=== PATIENT | female | born 1970 | race Hispanic/Latino ===

== ENCOUNTER 2016-08-24 20:33 | Emergency (ER) | payer BC ==
[2016-08-24 20:42] VITALS: BP 125/84; PULSE 82; RESP 16; TEMP 97.6; O2SAT 100
[2016-08-24] MEDS ORDERED: RABIES VACCINE 2.5 U PDR IM ONE (20:51)
[2016-08-24] MEDS ORDERED: Rabies Immune Globulin 150 INTLU/ML VIAL IM ONE (20:51)
[2016-08-24] MEDS ORDERED: TDAP Vaccine 0.5 mL Syr IM ONE (20:53)
--- NOTE | 2016-08-24 21:02 | ED PDOC ---
HPI: General Adult Time Seen by Provider: 08/24/16 20:45 Chief Complaint (Nursing): Bite Chief Complaint (Provider): Dog Bite History Per: Patient History/Exam Limitations: no limitations Onset/Duration Of Symptoms: Hrs Have you had recent travel within the past 21 days to any of the following countries: [place], [place], [place] or [place]?: No Current Symptoms Are (Timing): Still Present Additional Complaint(s): Frida Hurtado, a 46 year old female, presents to the ED with a dog bite. The patient states that earlier today she was bitten by a dog on her left forearm. She states that she was attempting to stop 2 dogs from fighting. The patient is uncertain of the dogs immunization status and she does not have the owners contact information. Past Medical History Reviewed: Historical Data, Nursing Documentation, Vital Signs Vital Signs: Last Vital Signs Temp 97.6 F 08/24/16 20:38 Pulse 82 08/24/16 20:38 Resp 16 08/24/16 20:38 BP 125/84 08/24/16 20:38 Pulse Ox 100 08/24/16 21:07 - Medical History PMH: No Chronic Diseases - Family History Family History: States: Unknown Family Hx - Home Medications Home Medications: Ambulatory Orders Medication Instructions Recorded Amoxicillin/Clavulanate [Augmentin 1 tab PO BID #20 tab 08/24/16 500 MG-125 MG] - Allergies Allergies/Adverse Reactions: Allergies Allergy/AdvReac Type Severity Reaction Status Date / Time No Known Allergies Allergy Verified 08/24/16 20:38 Review of Systems Skin: Positive for: Other (Dog Bite on left forearm.) Physical Exam - Reviewed Nursing Documentation Reviewed: Yes Vital Signs Reviewed: Yes - Physical Exam Appears: Positive for: Non-toxic, No Acute Distress Extremity: Positive for: Normal ROM, Other (Superficial puncture wound on theleft volar forearm.). Negative for: Tenderness (No tenderness to left forearm.), Deformity (No deformities to left forearm.), Swelling (No swelling to left forearm.) Neurologic/Psych: Positive for: Alert, Oriented, Gait - ECG O2 Sat by Pulse Oximetry: 100 (RA) Pulse Ox Interpretation: Normal - Progress ED Course And Treament: Wound irrigated heavily with NS. DSD applied. Medical Decision Making Medical Decision Makin:45 Initial Impression: 46 year old female presenting with dog bite Initial Plan: * Boostrix 0.5 mL IM * Imogam 1,180 intlu IM * Rabavert Vaccine inj 2.5u IM * Reevaluation Scribe Attestation Documented by Betsy Hobbs acting as a scribe for Oscar Harry PA-C. MD Scribe Attestation All medical record entries made by the Scribe were at my direction and personally dictated by me. I have reviewed the chart and agree that the record accurately reflects my personal performance of the history, physical exam, medical decision making, and the department course for this patient. I have also personally directed, reviewed, and agree with the discharge instructions and disposition. Disposition - Clinical Impression Clinical Impression: Dog bite - Patient ED Disposition Is Patient to be Admitted: No - Disposition Disposition: Routine/Home Disposition Time: 22:36 Condition: STABLE Prescriptions: Amoxicillin/Clavulanate [Augmentin 500 MG-125 MG] 1 tab PO BID #20 tab Instructions: Animal Bite (ED) Print Language: SPANISH
== END 2016-08-24 23:07 | disposition home or self-care (01) ==
LOC: H.ER 20:33
DX: S51.842A Puncture wound with foreign body of left forearm, initial encounter (principal); W54.0XXA Bitten by dog, initial encounter; Y92.410 Unspecified street and highway as the place of occurrence of the external cause